=== PATIENT | female | born 1955 | race Caucasian/White ===

== ENCOUNTER 2017-04-17 15:29 | Emergency (ER) | payer OTHER ==
[~2017-04-17] VITALS: Ht 152.4 cm; Wt 90.0 kg
[~2017-04-17 15:29] MED LIST: ACET500C5 PO; CEPH-443 PO
[2017-04-17 15:34] VITALS: Ht 152.4 cm; Wt 90.0 kg
[2017-04-17] MEDS ORDERED: ACET500C5 PO (16:32)
[2017-04-17] MEDS ORDERED: AZIT250T94 PO (16:32)
[2017-04-17] MEDS ORDERED: IBUP400T22 PO (16:32)
--- NOTE | 2017-04-17 16:37 | ERD ---
ER Documentation Chief Complaint Date/Time DATE: 04/17/17 TIME: 16:33 Chief Complaint HPI Patient is a 61-year-old female here with daughter who presents to the ED with sore throat, congestion, mild cough 2 days. States that they had a constitution party yesterday and was around a lot of sick people. Denies shortness of breath, chest pain or difficulty breathing. Has pain with swallowing. Denies tongue or lip swelling or drooling. Denies neck pain. Denies headache or dizziness, leg pain or leg swelling. Has not taken any medication for symptoms. No other complaints. ROS All systems reviewed and are negative except as per history of present illness. Medications Home Meds Active Scripts Ibuprofen* (Motrin*) 400 Mg Tab, 400 MG PO Q6, #30 TAB Prov:FERN MOJICA PA-C 04/17/17 Acetaminophen* (Tylophen*) 500 Mg Capsule, 1 CAP PO Q6H Y for PAIN AND OR ELEVATED TEMP, #20 CAP Prov:FERN MOJICA PA-C 04/17/17 Azithromycin* (Zithromax*) 250 Mg Tablet, 250 MG PO .ZPACK DIRECTED, #6 TAB TAKE 500 MG (2 TABS) THE FIRST DAY THEN 250 MG (1 TAB) DAYS 2-5 Prov:FERN MOJICA PA-C 04/17/17 Cephalexin* (Keflex*) 500 Mg Capsule, 500 MG PO QID for 7 Days, CAP Prov:KEY CYR PA-C 06/24/16 Acetaminophen* (Tylophen*) 500 Mg Capsule, 1 CAP PO Q6H Y for PAIN AND OR ELEVATED TEMP, #30 CAP Prov:KEY CYR PA-C 06/24/16 PMhx/Soc History of Surgery: No Anesthesia Reaction: No Hx Neurological Disorder: No Hx Respiratory Disorders: No Hx Cardiac Disorders: Yes (htn, high cholesterol) Hx Psychiatric Problems: No Hx Miscellaneous Medical Probl: No Hx Alcohol Use: No Hx Substance Use: No Hx Tobacco Use: No Smoking Status: Never smoker FmHx Family History: No coronary disease, No diabetes, No other Physical Exam Vitals Vital Signs Date Time Temp Pulse Resp B/P Pulse Ox O2 Delivery O2 Flow Rate FiO2 04/17/17 15:34 98.0 68 167/85 99 Physical Exam GENERAL: Well-developed, well-nourished female. Appears in no acute distress. HEAD: Normocephalic, atraumatic. EYES: Pupils are equally reactive bilaterally. EOMs grossly intact. No conjunctival erythema. ENT: Moist mucous membranes. No uvula deviation. No kissing tonsils. No exudates. Erythematous throat NECK: Supple. No lymphadenopathy or thyromegaly. No meningismus. negative kernig. negative brudinski. LUNG: Clear to auscultation bilaterally. No rhonchi, wheezing, rales or coarse breath sounds. HEART: Regular rate and rhythm. No murmurs, rubs or gallops. Extremities: Equal pulses bilaterally. No peripheral clubbing, cyanosis or edema. No unilateral leg swelling. NEUROLOGIC: Alert and oriented. Moving all four extremities. 5/5 strength in all extremities. Normal speech. Steady gait. SKIN: Normal color. Warm and dry. No rashes or lesions. Capillary refill < 2 seconds Procedures/MDM ER COURSE: I kept the patient and/or family informed of laboratory and diagnostic imaging results throughout the emergency room course. MEDICAL DECISION MAKING: This is a 61-year-old female who presents with sore throat, congestion 2 days. Vital signs were reviewed. Patient is afebrile. Patient is not hypoxic. She is not toxic or ill-appearing. Patient likely has pharyngitis. Low suspicion for peritonsillar abscess, strep pharyngitis, mononucleosis, dental abscess. Low suspicion for pneumonia, PE, pneumothorax, ACS, epiglottitis, obstruction, TB, pertussis, meningitis, sepsis. Advised patient to start antibiotics in 2 days if symptoms worsen. DISCHARGE: At this time, patient is stable for discharge and outpatient management with no new complaints during the ER course. Patient was sent home with Motrin, Tylenol , azithromycin. Patient will be discharged home with instructions to recheck for new or worsening symptoms such as fever, nausea, weakness, LOC and to follow up with primary care in the next 1-2 days. Patient was advised to return to the ER for any new or worsening symptoms. Plan was discussed and patient and/ or family understands and agrees. Home instructions were given. Departure Diagnosis: Primary Impression: Pharyngitis Pharyngitis/tonsillitis etiology: unspecified etiology Qualified Code: J02.9 - Pharyngitis, unspecified etiology Condition: Stable Patient Instructions: Strep Throat Additional Instructions: Llame al doctor MAANA y ayaka thelma TREVON PARA DENTRO DE 1-2 HANCOCK.Dgale a la secretaria que nosotros le instruimos hacer esta trevon.Avise o llame si taylor condicin se empeora antes de la trevon. Regresa aqui si peor o no mejor. FERN MOJICA PA-C Apr 17, 2017 16:36
[2017-04-17 17:01] VITALS: BP 149/81; PULSE 79; RESP 18; TEMP 98.2
== END 2017-04-17 17:07 | disposition home or self-care (01) ==
LOC: FTE 15:29
DX: J02.9 Acute pharyngitis, unspecified (principal); I10 Essential (primary) hypertension
CPT/HCPCS: 99283